=== PATIENT | female | born 1990 | race African-American/Black ===

== ENCOUNTER 2022-08-26 18:55 | Emergency (ER) | payer SELFPAY ==
[2022-08-26 19:04] VITALS: BP 143/81; PULSE 96; RESP 18; TEMP 36.2; O2SAT 96; BMI 40.3
--- NOTE | 2022-08-26 20:00 | ED.NURSE ---
pt. declines for a patient advocate. [place] nurse notified.
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
--- NOTE | 2022-08-26 20:33 | CRLHL7_ITS ---
For Patients: As a result of the Cures Act, medical imaging exams and procedure reports are released immediately into your electronic medical record. You may view this report before your referring provider. If you have questions, please contact your health care provider. INDICATION: Left anterior chest wall pain. TECHNIQUE: Chest 1 view. COMPARISON: None. FINDINGS: The cardiomediastinal silhouette size is normal. There is no focal pulmonary opacity, pleural effusion or pneumothorax. No displaced rib fracture. Impression: No acute cardiopulmonary abnormality. Dictated by China Up MD @ 08/26/2022 9:36:18 PM (Electronically Signed)
[2022-08-26 20:48] LABS: Hemoglobin* 11.6 gm/dL (12.0-16.0)
[2022-08-26 21:07] LABS: D Dimer Quantitative* 0.29 ug/ml (0.00-0.50)
[2022-08-26 21:11] LABS: Chloride* 102 mmol/L (96-114); Potassium* 3.7 mmol/L (3.6-5.1); Sodium* 135 mmol/L (135-149)
[2022-08-26 21:13] LABS: Creatinine* 0.8 mg/dL (0.5-1.5); Est. Creatinine Clearance* 114.93; Estimated Glomerular Filt Rate 102 ml/min
[2022-08-26 21:14] LABS: Blood Urea Nitrogen* 18 mg/dL (5-24); Calcium* 9.3 mg/dL (8.4-10.6); Carbon Dioxide* 29 mmol/L (20-32); Glucose* 122 mg/dL (60-115)
[2022-08-26 21:17] LABS: C Reactive Protein* 1.3 mg/dL (0.5-1.0)
[2022-08-26 21:25] LABS: NT Pro B Type NatriureticPept* < 20 pg/mL
[2022-08-26 21:27] LABS: Troponin I* < 0.01 ng/mL (0.01-0.04)
[2022-08-26 22:45] VITALS: TEMP 36.8
[2022-08-26] MEDS: IBUPROFEN 200 MG TABLET 400 MG PO (22:45)
[2022-08-26] MEDS: AZITHROMYCIN 250 MG TABLET 1000 MG PO (23:43)
[2022-08-26] MEDS: LIDOCAINE 1% 5 ml (pf) 5 ML VIAL 1 ML IM (23:50)
[2022-08-26] MEDS: cefTRIAXone 500 MG VIAL IM (23:50)
[2022-08-27 00:09] VITALS: TEMP 36.8
[2022-08-27 01:29] VITALS: BP 135/74; PULSE 84; RESP 18; TEMP 36.8; O2SAT 96
[2022-08-27 01:40] VITALS: BP 135/74; PULSE 84; RESP 18; TEMP 36.8
== END 2022-08-27 01:40 | disposition home or self-care (01) ==
PROVIDERS: Emergency Provider Family Medicine
DX: R07.89 Other chest pain (principal); T76.21XA Adult sexual abuse, suspected, initial encounter
CPT/HCPCS: 36415; 71045; 80048; 83880; 84443; 84484; 85018; 85379; 86140; 93005; 99283; 99284; 99285; A9270; J0696